=== PATIENT | male | born 1960 | race Caucasian/White ===

== ENCOUNTER 2017-12-31 01:18 | Observation (INO) | payer BC ==
[2017-12-31] MEDS ORDERED: Sodium Chloride 0.9% 10 ML Syringe FLUSH PRN (01:19)
[2017-12-31] MEDS ORDERED: Sodium Chloride 0.9% 2.5 ML Syringe FLUSH PRN (01:19)
[2017-12-31] MEDS ORDERED: Nitroglycerin 2% Oint 1 GM UD Packet TOP ONE (01:42)
[2017-12-31] MEDS ORDERED: Aspirin 81 MG Tab.Chew PO ONE (01:42)
[2017-12-31] MEDS ORDERED: Albuterol/Ipratropium 3.0-0.5 MG/3 ML Neb Soln NEB ONE (01:42)
[2017-12-31] MEDS ORDERED: Sodium Chloride 0.9% 1,000 ML IV ONE (01:43)
[2017-12-31] MEDS ORDERED: methylPREDNISolone Sodium Succinate 125 MG/2 ML SDV IVPUSH ONE (01:43)
[2017-12-31] MEDS ORDERED: Pantoprazole 40 MG Vial IVPUSH ONE (01:43)
--- NOTE | 2017-12-31 01:48 | EDM.PDOC ---
ED HPI GENERAL MEDICAL PROBLEM - General Chief Complaint: Cardiovascular Problem Stated Complaint: SHORTNESS OF BREATH Time Seen by Provider: 12/31/17 01:36 - History of Present Illness INITIAL COMMENTS - FREE TEXT/NARRATIVE: HISTORY AND PHYSICAL: History of present illness: The patient is a 57-year-old male with a history of hypertension as well as a long-standing smoking history, 1-1/2 packs per day for 45 years, but has no stated pulmonary history and presents with complaints of shortness of breath that has been ongoing all day yesterday and worsened this evening. The patient denies any fevers chills or upper respiratory symptoms prior to today but says that all day he felt like he was short of breath with activities and with rest but he didn't have cough or any other symptoms. The patient [place] the [place] and is not exposed to any chemicals or other airborne products that he is aware of. He says he usually lives in [place] and has been here over 2 weeks. He says that when he got home after working he still felt short of breath does he did the day but tried to go to sleep and then at 10 PM he started having a dry hacking cough intermittently and more shortness of breath but no chest pain. He says that he decided to come in because about an hour ago he started having some indigestion which he doesn't normally have. He has no abdominal pain and he has no vomiting or nausea and she's had no diarrhea or black or bloody stools. Patient denies any GI history. Currently in the ED he feels that he can take a deep breath but he says he just feels like he is not getting enough oxygen. He again denies any chest pain no extremity pain no leg swelling and no history of congestive heart failure. He has no other cardiac history. He did not take any medications for shortness of breath or cough prior to coming here. The patient tells me that when he sees his provider back at home for his blood pressure a good blood pressure for him is 160s over 90s. He doesn't usually get below that. He has no headache neck pain or back pain and has had no recent trauma. Patient told nursing that he took his blood pressure at home and it was 190/114 and he was concerned about that along with a dull diffuse headache. On my evaluation he says that he has a headache but he points to the top of his head and is not lateralizing right or left and it is diffuse. Review of systems: As per history of present illness and below otherwise all systems reviewed and negative. Past medical history: As per history of present illness and as reviewed below otherwise noncontributory. Surgical history: As per history of present illness and as reviewed below otherwise noncontributory. Social history: No reported history of drug or alcohol abuse. Family history: As per history of present illness and as reviewed below otherwise noncontributory. Physical exam: General: Well-developed well-nourished mildly overweight man who is nontoxic and vital signs are reviewed by me. I did hear a hacking dry cough on my evaluation. Is not breathless with speech. HEENT: Atraumatic, normocephalic, pupils reactive, negative for conjunctival pallor or scleral icterus, mucous membranes moist, throat clear, neck supple, nontender, trachea midline. Lungs: Clear to auscultation, breath sounds equal bilaterally, chest nontender. There is no wheezing or stridor but there is some diminished breath sounds in the bases bilaterally and no work of breathing. Heart: S1S2, regular rate and rhythm rhythm no overt murmurs Abdomen: Soft, nondistended, nontender. Negative for masses or hepatosplenomegaly. NABS Pelvis: Stable nontender. Genitourinary: Deferred. Rectal: Deferred. Extremities: Atraumatic, negative for cords or calf pain. Neurovascular unremarkable. No pedal edema or leg asymmetry Neuro: Awake, alert, oriented. Cranial nerves II through XII unremarkable. Cerebellum unremarkable. Motor and sensory unremarkable throughout. Exam nonfocal. Skin: There is normal turgor and no evidence of any diaphoresis Diagnostics: EKG--nonspecific T-wave inversion in 2 of the inferior leads otherwise no acute changes Portable chest x-ray CBC CMP amylase lipase INR troponin magnesium alcohol level Therapeutics: IV O2 monitor IV fluids duo neb Solu-Medrol aspirin nitro paste Protonix Tylenol 0250: Patient is most recent blood pressure is 144/78. 0305a: He says he is feeling much improved with all the medications and I've given him and I discussed with him all testing results and my recommendation for observation admission for the oddness of the symptoms without any definitive etiology and his episode of heartburn and hypertension. He is agreeable and I will discuss this case with the hospitalist Dr Diaz 0325: Case discussed with Dr. Diaz who accepts the patient for admission. Impression: Dyspnea, hypertension poorly controlled, atypical chest pain rule out anginal equivalent Definitive disposition and diagnosis as appropriate pending reevaluation and review of above. head Pain Score (Numeric/FACES): 6 - Related Data Allergies Allergy/AdvReac Type Severity Reaction Status Date / Time No Known Allergies Allergy Verified 12/31/17 01:49 Home Meds: Home Meds Hydrochlorothiazide [Microzide] 0 mg PO DAILY 12/31/17 [History] Hydrocodone/Acetaminophen [Hydrocodon-Acetaminoph 7.5-325] 0 mg PO ASDIRECTED [History] Lisinopril 1 tab PO DAILY 12/31/17 [History] Metoprolol Succinate [Kapspargo Sprinkle] 1 tab PO DAILY 12/31/17 [History] ED ROS GENERAL - Review of Systems Review Of Systems: ROS reveals no pertinent complaints other than HPI. ED EXAM, GENERAL - Physical Exam Exam: See Below (See dictation) Course - Vital Signs Last Recorded V/S: Last Vital Signs Temp 36.7 C 12/31/17 03:09 Pulse 66 12/31/17 03:09 Resp 18 12/31/17 03:09 BP 157/84 H 12/31/17 03:09 Pulse Ox 97 12/31/17 03:09 - Orders/Labs/Meds Orders: Active Orders 24 hr Category Date Time Status Patient Status [ADT] Stat ADT 12/31/17 03:21 Active Cardiac Monitoring [RC] . DIRECTED Care 12/31/17 01:20 Active EKG Documentation Completion [RC] STAT Care 12/31/17 01:20 Active Oxygen Therapy, ED [RC] ASDIRECTED Care 12/31/17 01:20 Active Pulse Oximetry [RC] ASDIRECTED Care 12/31/17 01:20 Active RT Aerosol Therapy [RC] ASDIRECTED Care 12/31/17 01:43 Active Chest 1V Frontal [CR] Stat Exams 12/31/17 01:43 Taken Sodium Chloride 0.9% [Saline Flush] Med 12/31/17 01:19 Active 10 ml FLUSH ASDIRECTED PRN Sodium Chloride 0.9% [Saline Flush] Med 12/31/17 01:19 Active 2.5 ml FLUSH ASDIRECTED PRN Saline Lock Insert [OM.PC] Stat Oth 12/31/17 01:20 Ordered Medication Orders Sodium Chloride (Saline Flush) 10 ml FLUSH ASDIRECTED PRN PRN Reason: Keep Vein Open Sodium Chloride (Saline Flush) 2.5 ml FLUSH ASDIRECTED PRN PRN Reason: Keep Vein Open Labs: Laboratory Tests 12/31/17 12/31/17 12/31/17 Range/Units 01:45 01:45 01:45 WBC 6.34 (4.0-11.0) K/uL RBC 5.15 (4.50-5.90) M/uL Hgb 15.8 (13.0-17.0) g/dL Hct 44.5 (38.0-50.0) % MCV 86.4 (80.0-98.0) fL MCH 30.7 (27.0-32.0) pg MCHC 35.5 (31.0-37.0) g/dL RDW Std Deviation 39.7 (28.0-62.0) fl RDW Coeff of Ivan 13 (11.0-15.0) % Plt Count 226 (150-400) K/uL MPV 10.00 (7.40-12.00) fL Neut % (Auto) 49.5 (48.0-80.0) % Lymph % (Auto) 34.5 (16.0-40.0) % [place] % (Auto) 10.6 (0.0-15.0) % Eos % (Auto) 4.9 (0.0-7.0) % Baso % (Auto) 0.5 (0.0-1.5) % Neut # (Auto) 3.1 (1.4-5.7) K/uL Lymph # (Auto) 2.2 (0.6-2.4) K/uL [place] # (Auto) 0.7 (0.0-0.8) K/uL Eos # (Auto) 0.3 (0.0-0.7) K/uL Baso # (Auto) 0.0 (0.0-0.1) K/uL INR 0.98 Sodium 138 (136-148) mmol/L Potassium 4.1 (3.5-5.1) mmol/L Chloride 101 (98-107) mmol/L Carbon Dioxide 27.7 (21.0-32.0) mmol/L BUN 11 (7.0-18.0) mg/dL Creatinine 1.0 (0.8-1.3) mg/dL Est Cr Clr Drug Dosing 97.41 mL/min Estimated GFR (MDRD) > 60.0 ml/min Glucose 136 H (74-106) mg/dL Calcium 9.1 (8.5-10.1) mg/dL Magnesium (1.8-2.4) mg/dL Total Bilirubin 0.4 (0.2-1.0) mg/dL AST 17 (15-37) IU/L ALT 34 (14-63) IU/L Alkaline Phosphatase 86 (46-116) U/L Troponin I < 0.050 (0.000-0.056) ng/mL Total Protein 7.4 (6.4-8.2) g/dL Albumin 4.1 (3.4-5.0) g/dL Globulin 3.3 (2.0-3.5) g/dL Albumin/Globulin Ratio 1.2 L (1.3-2.8) Amylase 42 (25-115) U/L Lipase 148 (73-393) U/L Ethyl Alcohol mg/dL 12/31/17 Range/Units 01:45 WBC (4.0-11.0) K/uL RBC (4.50-5.90) M/uL Hgb (13.0-17.0) g/dL Hct (38.0-50.0) % MCV (80.0-98.0) fL MCH (27.0-32.0) pg MCHC (31.0-37.0) g/dL RDW Std Deviation (28.0-62.0) fl RDW Coeff of Ivan (11.0-15.0) % Plt Count (150-400) K/uL MPV (7.40-12.00) fL Neut % (Auto) (48.0-80.0) % Lymph % (Auto) (16.0-40.0) % [place] % (Auto) (0.0-15.0) % Eos % (Auto) (0.0-7.0) % Baso % (Auto) (0.0-1.5) % Neut # (Auto) (1.4-5.7) K/uL Lymph # (Auto) (0.6-2.4) K/uL [place] # (Auto) (0.0-0.8) K/uL Eos # (Auto) (0.0-0.7) K/uL Baso # (Auto) (0.0-0.1) K/uL INR Sodium (136-148) mmol/L Potassium (3.5-5.1) mmol/L Chloride (98-107) mmol/L Carbon Dioxide (21.0-32.0) mmol/L BUN (7.0-18.0) mg/dL Creatinine (0.8-1.3) mg/dL Est Cr Clr Drug Dosing mL/min Estimated GFR (MDRD) ml/min Glucose (74-106) mg/dL Calcium (8.5-10.1) mg/dL Magnesium 1.8 (1.8-2.4) mg/dL Total Bilirubin (0.2-1.0) mg/dL AST (15-37) IU/L ALT (14-63) IU/L Alkaline Phosphatase (46-116) U/L Troponin I (0.000-0.056) ng/mL Total Protein (6.4-8.2) g/dL Albumin (3.4-5.0) g/dL Globulin (2.0-3.5) g/dL Albumin/Globulin Ratio (1.3-2.8) Amylase (25-115) U/L Lipase (73-393) U/L Ethyl Alcohol 26 mg/dL Meds: Medications Generic Name Dose Route Start Last Admin Trade Name Freq PRN Reason Stop Dose Admin Sodium Chloride 10 ml 12/31/17 01:19 Saline Flush FLUSH ASDIRECTED PRN Keep Vein Open Sodium Chloride 2.5 ml 12/31/17 01:19 Saline Flush FLUSH ASDIRECTED PRN Keep Vein Open Discontinued Medications Generic Name Dose Route Start Last Admin Trade Name Freq PRN Reason Stop Dose Admin Acetaminophen 1,000 mg 12/31/17 02:04 12/31/17 02:12 Tylenol Extra Strength PO 12/31/17 02:05 1,000 mg ONETIME ONE Administration Albuterol/Ipratropium 3 ml 12/31/17 01:42 12/31/17 01:55 Duoneb 3.0-0.5 Mg/3 Ml NEB 12/31/17 01:43 3 ml ONETIME ONE Administration Aspirin 324 mg 12/31/17 01:42 12/31/17 01:54 Aspirin PO 12/31/17 01:43 324 mg ONETIME ONE Administration Sodium Chloride 1,000 mls @ 999 mls/hr 12/31/17 01:43 12/31/17 01:54 Normal Saline IV 12/31/17 02:43 999 mls/hr STAT ONE Administration Methylprednisolone Sodium Succinate 125 mg 12/31/17 01:43 12/31/17 01:55 Solu-Medrol IVPUSH 12/31/17 01:44 125 mg ONETIME ONE Administration Nitroglycerin 1 gm 12/31/17 01:42 12/31/17 01:55 Nitro-Bid 2% TOP 12/31/17 01:43 1 gm ONETIME ONE Administration Pantoprazole Sodium 80 mg 12/31/17 01:43 12/31/17 01:55 Protonix Iv IVPUSH 12/31/17 01:44 80 mg .BOLUS ONE Administration Departure - Departure Time of Disposition: 03:37 Disposition: Refer to Observation Reason for Transfer *Q: Primary PCI Indicated Condition: Good Clinical Impression: Dyspnea, Anginal equivalent, Poorly-controlled hypertension Forms: ED Department Discharge - My Orders Last 24 Hours: My Active Orders 12/31/17 01:19 Sodium Chloride 0.9% [Saline Flush] 10 ml FLUSH ASDIRECTED PRN Sodium Chloride 0.9% [Saline Flush] 2.5 ml FLUSH ASDIRECTED PRN 12/31/17 01:20 Cardiac Monitoring [RC] . DIRECTED EKG Documentation Completion [RC] STAT Oxygen Therapy, ED [RC] ASDIRECTED Pulse Oximetry [RC] ASDIRECTED Saline Lock Insert [OM.PC] Stat 12/31/17 01:43 RT Aerosol Therapy [RC] ASDIRECTED Chest 1V Frontal [CR] Stat 12/31/17 03:21 Patient Status [ADT] Stat - Assessment/Plan Last 24 Hours: My Active Orders 12/31/17 01:19 Sodium Chloride 0.9% [Saline Flush] 10 ml FLUSH ASDIRECTED PRN Sodium Chloride 0.9% [Saline Flush] 2.5 ml FLUSH ASDIRECTED PRN 12/31/17 01:20 Cardiac Monitoring [RC] . DIRECTED EKG Documentation Completion [RC] STAT Oxygen Therapy, ED [RC] ASDIRECTED Pulse Oximetry [RC] ASDIRECTED Saline Lock Insert [OM.PC] Stat 12/31/17 01:43 RT Aerosol Therapy [RC] ASDIRECTED Chest 1V Frontal [CR] Stat 12/31/17 03:21 Patient Status [ADT] Stat
[2017-12-31] MEDS ORDERED: Acetaminophen 500 MG Tab PO ONE (02:04)
[2017-12-31 02:18] LABS: CHLORIDE,CL 101 mmol/L (98-107); SODIUM,NA 138 mmol/L (136-148)
[2017-12-31] MEDS ORDERED: Lisinopril 10 MG Tab PO SCH ×3 (10:00→10:30)
[2017-12-31] MEDS ORDERED: Metoprolol Succinate 100 MG Tab.ER PO SCH (10:15)
--- NOTE | 2017-12-31 12:40 | PCM.HP ---
H&P History of Present Illness - General Date of Service: 12/31/17 Admit Problem/Dx: Admission Diagnosis/Problem Admission Diagnosis/Problem Dyspnea - History of Present Illness Initial Comments - Free Text/Narative: He was seen in the ED with cough and some chest pain. He states that he is much better now EKG in the ED showed sinus rhythm with RBBB with T wave flattening in lead II and with flipped T waves in III and AVF He wants to go home. head Pain Score (Numeric/FACES): 6 - Related Data Allergies/Adverse Reactions: Allergies Allergy/AdvReac Type Severity Reaction Status Date / Time No Known Allergies Allergy Verified 12/31/17 01:49 Home Medications: Home Meds Hydrochlorothiazide [Microzide] 0 mg PO DAILY 12/31/17 [History] Hydrocodone/Acetaminophen [Hydrocodon-Acetaminoph 7.5-325] 0 mg PO ASDIRECTED [History] Lisinopril 20 mg PO DAILY 12/31/17 [History] Metoprolol Succinate [Kapspargo Sprinkle] 100 mg PO DAILY 12/31/17 [History] Past Medical History Cardiovascular History: Reports: Hypertension. Denies: Afib, Cardiomyopathy, NC Respiratory History: Denies: Asthma, COPD Musculoskeletal History: Reports: Back Pain, Chronic Endocrine/Metabolic History: Denies: Frank's Disease, Diabetes, Type I, Diabetes, Type II Oncologic (Cancer) History: Reports: None Social & Family History - Family History Family Medical History: Noncontributory - Tobacco Use Smoking Status *Q: Current Every Day Smoker Years of Tobacco use: 45 Packs/Tins Daily: 1.5 - Caffeine Use Caffeine Use: Reports: Coffee - Recreational Drug Use Recreational Drug Use: No H&P Review of Systems - Review of Systems: Review Of Systems: See Below Pulmonary: Reports: Shortness of Breath, Cough Cardiovascular: Reports: Chest Pain Gastrointestinal: Denies: Bloody Stool, Hematemesis Genitourinary: Denies: Hematuria Exam - Exam Exam: See Below - Vital Signs Vital Signs: Last Vital Signs Temp 97.4 F 12/31/17 11:30 Pulse 97 12/31/17 11:30 Resp 16 12/31/17 11:30 BP 171/95 H 12/31/17 11:30 Pulse Ox 97 12/31/17 11:30 Weight: 143.335 kg - Exam General: Alert, Oriented HEENT: Conjunctiva Clear Neck: Trachea Midline Lungs: Clear to Auscultation, Normal Respiratory Effort Cardiovascular: Regular Rate, Regular Rhythm GI/Abdominal Exam: Soft Rectal (Males) Exam: Deferred Extremities: No Pedal Edema Neurological: Cranial Nerves Intact, Normal Speech - Patient Data Lab Results Last 24 hrs: Laboratory Results - last 24 hr 12/31/17 12/31/17 12/31/17 Range/Units 01:45 01:45 01:45 WBC 6.34 (4.0-11.0) K/uL RBC 5.15 (4.50-5.90) M/uL Hgb 15.8 (13.0-17.0) g/dL Hct 44.5 (38.0-50.0) % MCV 86.4 (80.0-98.0) fL MCH 30.7 (27.0-32.0) pg MCHC 35.5 (31.0-37.0) g/dL RDW Std Deviation 39.7 (28.0-62.0) fl RDW Coeff of Ivan 13 (11.0-15.0) % Plt Count 226 (150-400) K/uL MPV 10.00 (7.40-12.00) fL Neut % (Auto) 49.5 (48.0-80.0) % Lymph % (Auto) 34.5 (16.0-40.0) % [place] % (Auto) 10.6 (0.0-15.0) % Eos % (Auto) 4.9 (0.0-7.0) % Baso % (Auto) 0.5 (0.0-1.5) % Neut # (Auto) 3.1 (1.4-5.7) K/uL Lymph # (Auto) 2.2 (0.6-2.4) K/uL [place] # (Auto) 0.7 (0.0-0.8) K/uL Eos # (Auto) 0.3 (0.0-0.7) K/uL Baso # (Auto) 0.0 (0.0-0.1) K/uL INR 0.98 Sodium 138 (136-148) mmol/L Potassium 4.1 (3.5-5.1) mmol/L Chloride 101 (98-107) mmol/L Carbon Dioxide 27.7 (21.0-32.0) mmol/L BUN 11 (7.0-18.0) mg/dL Creatinine 1.0 (0.8-1.3) mg/dL Est Cr Clr Drug Dosing 97.41 mL/min Estimated GFR (MDRD) > 60.0 ml/min Glucose 136 H (74-106) mg/dL Calcium 9.1 (8.5-10.1) mg/dL Magnesium (1.8-2.4) mg/dL Total Bilirubin 0.4 (0.2-1.0) mg/dL AST 17 (15-37) IU/L ALT 34 (14-63) IU/L Alkaline Phosphatase 86 (46-116) U/L Troponin I < 0.050 (0.000-0.056) ng/mL Total Protein 7.4 (6.4-8.2) g/dL Albumin 4.1 (3.4-5.0) g/dL Globulin 3.3 (2.0-3.5) g/dL Albumin/Globulin Ratio 1.2 L (1.3-2.8) Amylase 42 (25-115) U/L Lipase 148 (73-393) U/L Ethyl Alcohol mg/dL 12/31/17 12/31/17 Range/Units 01:45 07:50 WBC (4.0-11.0) K/uL RBC (4.50-5.90) M/uL Hgb (13.0-17.0) g/dL Hct (38.0-50.0) % MCV (80.0-98.0) fL MCH (27.0-32.0) pg MCHC (31.0-37.0) g/dL RDW Std Deviation (28.0-62.0) fl RDW Coeff of Ivan (11.0-15.0) % Plt Count (150-400) K/uL MPV (7.40-12.00) fL Neut % (Auto) (48.0-80.0) % Lymph % (Auto) (16.0-40.0) % [place] % (Auto) (0.0-15.0) % Eos % (Auto) (0.0-7.0) % Baso % (Auto) (0.0-1.5) % Neut # (Auto) (1.4-5.7) K/uL Lymph # (Auto) (0.6-2.4) K/uL [place] # (Auto) (0.0-0.8) K/uL Eos # (Auto) (0.0-0.7) K/uL Baso # (Auto) (0.0-0.1) K/uL INR Sodium (136-148) mmol/L Potassium (3.5-5.1) mmol/L Chloride (98-107) mmol/L Carbon Dioxide (21.0-32.0) mmol/L BUN (7.0-18.0) mg/dL Creatinine (0.8-1.3) mg/dL Est Cr Clr Drug Dosing mL/min Estimated GFR (MDRD) ml/min Glucose (74-106) mg/dL Calcium (8.5-10.1) mg/dL Magnesium 1.8 (1.8-2.4) mg/dL Total Bilirubin (0.2-1.0) mg/dL AST (15-37) IU/L ALT (14-63) IU/L Alkaline Phosphatase (46-116) U/L Troponin I < 0.050 (0.000-0.056) ng/mL Total Protein (6.4-8.2) g/dL Albumin (3.4-5.0) g/dL Globulin (2.0-3.5) g/dL Albumin/Globulin Ratio (1.3-2.8) Amylase (25-115) U/L Lipase (73-393) U/L Ethyl Alcohol 26 mg/dL Result Diagrams: 12/31/17 01:45 12/31/17 01:45 - Problem List (1) Poorly-controlled hypertension SNOMED Code(s): 522211615 ICD Code: I10 - ESSENTIAL (PRIMARY) HYPERTENSION Status: Acute Current Visit: No Problem List Initiated/Reviewed/Updated: Yes Orders Last 24hrs: Active Orders 24 hr Category Date Time Status Patient Status [ADT] Stat ADT 12/31/17 03:21 Active Cardiac Monitoring [RC] Q8H Care 12/31/17 01:20 Active EKG Documentation Completion [RC] STAT Care 12/31/17 01:20 Active Oxygen Therapy, ED [RC] ASDIRECTED Care 12/31/17 01:20 Active Pulse Oximetry [RC] ASDIRECTED Care 12/31/17 01:20 Active RT Aerosol Therapy [RC] ASDIRECTED Care 12/31/17 01:43 Active 2 Gram Sodium Diet [DIET] Diet 12/31/17 Breakfast Active Chest 1V Frontal [CR] Stat Exams 12/31/17 01:43 Taken TROPONIN I [CHEM] Routine Lab 12/31/17 13:45 Ordered Lisinopril [Prinivil] Med 12/31/17 10:30 Active 20 mg PO DAILY Metoprolol Succinate [Toprol XL] Med 12/31/17 10:15 Active 100 mg PO DAILY Sodium Chloride 0.9% [Saline Flush] Med 12/31/17 01:19 Active 10 ml FLUSH ASDIRECTED PRN Sodium Chloride 0.9% [Saline Flush] Med 12/31/17 01:19 Active 2.5 ml FLUSH ASDIRECTED PRN Saline Lock Insert [OM.PC] Stat Oth 12/31/17 01:20 Ordered Medication Orders Lisinopril (Prinivil) 20 mg PO DAILY [facility] Last Admin: 12/31/17 10:27 Dose: 20 mg Metoprolol Succinate (Toprol Xl) 100 mg PO DAILY [facility] Last Admin: 12/31/17 10:19 Dose: 100 mg Sodium Chloride (Saline Flush) 10 ml FLUSH ASDIRECTED PRN PRN Reason: Keep Vein Open Sodium Chloride (Saline Flush) 2.5 ml FLUSH ASDIRECTED PRN PRN Reason: Keep Vein Open Assessment/Plan Comment:: observe telemetry
--- NOTE | 2017-12-31 12:46 | PCM.DCSUM1 ---
Discharge Summary - Hospital Course Free Text/Narrative:: He was admitted for several troponins for chest pain and cough. Diagnosis: Stroke: No - Discharge Data Discharge Date: 12/31/17 Discharge Disposition: Home, Self-Care 01 Condition: Good - Discharge Diagnosis/Problem(s) (1) Poorly-controlled hypertension SNOMED Code(s): 237361571 ICD Code: I10 - ESSENTIAL (PRIMARY) HYPERTENSION Status: Acute Current Visit: No - Patient Summary/Data Hospital Course: His serial troponins were normal. His cough improved and he feels improved. He remained hypertensive during the time in the hospital. AT discharge his lungs are clear to auscultation. He wants to follow up when he goes home to [place]. I recommended consideration of heart stress testing when he goes home I also recommended increasing his antihypertensives to: lisinopril 20 mg bid HCTZ 12.5 mg bid Will discharge on azithromymycin ( z pack) - Discharge Plan Home Medications: Home Meds Hydrochlorothiazide [Microzide] 0 mg PO DAILY 12/31/17 [History] Hydrocodone/Acetaminophen [Hydrocodon-Acetaminoph 7.5-325] 0 mg PO ASDIRECTED [History] Lisinopril 20 mg PO DAILY 12/31/17 [History] Metoprolol Succinate [[place]sp[place] Sprinkle] 100 mg PO DAILY 12/31/17 [History] Forms: ED Department Discharge Referrals: PCP,None [Primary Care Provider] - - Patient Data Vitals - Most Recent: Last Vital Signs Temp 97.4 F 12/31/17 11:30 Pulse 97 12/31/17 11:30 Resp 16 12/31/17 11:30 BP 171/95 H 12/31/17 11:30 Pulse Ox 97 12/31/17 11:30 Weight - Most Recent: 143.335 kg Lab Results - Last 24 hrs: Laboratory Results - last 24 hr 12/31/17 12/31/17 12/31/17 Range/Units 01:45 01:45 01:45 WBC 6.34 (4.0-11.0) K/uL RBC 5.15 (4.50-5.90) M/uL Hgb 15.8 (13.0-17.0) g/dL Hct 44.5 (38.0-50.0) % MCV 86.4 (80.0-98.0) fL MCH 30.7 (27.0-32.0) pg MCHC 35.5 (31.0-37.0) g/dL RDW Std Deviation 39.7 (28.0-62.0) fl RDW Coeff of Ivan 13 (11.0-15.0) % Plt Count 226 (150-400) K/uL MPV 10.00 (7.40-12.00) fL Neut % (Auto) 49.5 (48.0-80.0) % Lymph % (Auto) 34.5 (16.0-40.0) % [place] % (Auto) 10.6 (0.0-15.0) % Eos % (Auto) 4.9 (0.0-7.0) % Baso % (Auto) 0.5 (0.0-1.5) % Neut # (Auto) 3.1 (1.4-5.7) K/uL Lymph # (Auto) 2.2 (0.6-2.4) K/uL [place] # (Auto) 0.7 (0.0-0.8) K/uL Eos # (Auto) 0.3 (0.0-0.7) K/uL Baso # (Auto) 0.0 (0.0-0.1) K/uL INR 0.98 Sodium 138 (136-148) mmol/L Potassium 4.1 (3.5-5.1) mmol/L Chloride 101 (98-107) mmol/L Carbon Dioxide 27.7 (21.0-32.0) mmol/L BUN 11 (7.0-18.0) mg/dL Creatinine 1.0 (0.8-1.3) mg/dL Est Cr Clr Drug Dosing 97.41 mL/min Estimated GFR (MDRD) > 60.0 ml/min Glucose 136 H (74-106) mg/dL Calcium 9.1 (8.5-10.1) mg/dL Magnesium (1.8-2.4) mg/dL Total Bilirubin 0.4 (0.2-1.0) mg/dL AST 17 (15-37) IU/L ALT 34 (14-63) IU/L Alkaline Phosphatase 86 (46-116) U/L Troponin I < 0.050 (0.000-0.056) ng/mL Total Protein 7.4 (6.4-8.2) g/dL Albumin 4.1 (3.4-5.0) g/dL Globulin 3.3 (2.0-3.5) g/dL Albumin/Globulin Ratio 1.2 L (1.3-2.8) Amylase 42 (25-115) U/L Lipase 148 (73-393) U/L Ethyl Alcohol mg/dL 12/31/17 12/31/17 Range/Units 01:45 07:50 WBC (4.0-11.0) K/uL RBC (4.50-5.90) M/uL Hgb (13.0-17.0) g/dL Hct (38.0-50.0) % MCV (80.0-98.0) fL MCH (27.0-32.0) pg MCHC (31.0-37.0) g/dL RDW Std Deviation (28.0-62.0) fl RDW Coeff of Ivan (11.0-15.0) % Plt Count (150-400) K/uL MPV (7.40-12.00) fL Neut % (Auto) (48.0-80.0) % Lymph % (Auto) (16.0-40.0) % [place] % (Auto) (0.0-15.0) % Eos % (Auto) (0.0-7.0) % Baso % (Auto) (0.0-1.5) % Neut # (Auto) (1.4-5.7) K/uL Lymph # (Auto) (0.6-2.4) K/uL [place] # (Auto) (0.0-0.8) K/uL Eos # (Auto) (0.0-0.7) K/uL Baso # (Auto) (0.0-0.1) K/uL INR Sodium (136-148) mmol/L Potassium (3.5-5.1) mmol/L Chloride (98-107) mmol/L Carbon Dioxide (21.0-32.0) mmol/L BUN (7.0-18.0) mg/dL Creatinine (0.8-1.3) mg/dL Est Cr Clr Drug Dosing mL/min Estimated GFR (MDRD) ml/min Glucose (74-106) mg/dL Calcium (8.5-10.1) mg/dL Magnesium 1.8 (1.8-2.4) mg/dL Total Bilirubin (0.2-1.0) mg/dL AST (15-37) IU/L ALT (14-63) IU/L Alkaline Phosphatase (46-116) U/L Troponin I < 0.050 (0.000-0.056) ng/mL Total Protein (6.4-8.2) g/dL Albumin (3.4-5.0) g/dL Globulin (2.0-3.5) g/dL Albumin/Globulin Ratio (1.3-2.8) Amylase (25-115) U/L Lipase (73-393) U/L Ethyl Alcohol 26 mg/dL Med Orders - Current: Current Medications Lisinopril (Prinivil) 20 mg PO DAILY [facility] Last Admin: 12/31/17 10:27 Dose: 20 mg Metoprolol Succinate (Toprol Xl) 100 mg PO DAILY [facility] Last Admin: 12/31/17 10:19 Dose: 100 mg Sodium Chloride (Saline Flush) 10 ml FLUSH ASDIRECTED PRN PRN Reason: Keep Vein Open Sodium Chloride (Saline Flush) 2.5 ml FLUSH ASDIRECTED PRN PRN Reason: Keep Vein Open Discontinued Medications Acetaminophen (Tylenol Extra Strength) 1,000 mg PO ONETIME ONE Stop: 12/31/17 02:05 Last Admin: 12/31/17 02:12 Dose: 1,000 mg Albuterol/Ipratropium (Duoneb 3.0-0.5 Mg/3 Ml) 3 ml NEB ONETIME ONE Stop: 12/31/17 01:43 Last Admin: 12/31/17 01:55 Dose: 3 ml Aspirin (Aspirin) 324 mg PO ONETIME ONE Stop: 12/31/17 01:43 Last Admin: 12/31/17 01:54 Dose: 324 mg Sodium Chloride (Normal Saline) 1,000 mls @ 999 mls/hr IV STAT ONE Stop: 12/31/17 02:43 Last Admin: 12/31/17 01:54 Dose: 999 mls/hr Lisinopril (Prinivil) 10 mg PO DAILY [facility] Lisinopril (Prinivil) 20 mg PO DAILY [facility] Methylprednisolone Sodium Succinate (Solu-Medrol) 125 mg IVPUSH ONETIME ONE Stop: 12/31/17 01:44 Last Admin: 12/31/17 01:55 Dose: 125 mg Nitroglycerin (Nitro-Bid 2%) 1 gm TOP ONETIME ONE Stop: 12/31/17 01:43 Last Admin: 12/31/17 01:55 Dose: 1 gm Pantoprazole Sodium (Protonix Iv) 80 mg IVPUSH .BOLUS ONE Stop: 12/31/17 01:44 Last Admin: 12/31/17 01:55 Dose: 80 mg
--- NOTE | 2018-01-02 09:36 | CR ---
EXAM DATE: 12/31/17 PATIENT'S AGE: 57 Patient: [facility] Facility: [place], [place] Site . Site : [id number] Study: XRay Chest [id number] 2:10:56 AM Ordering Physician: Kevan Nevarez Final Report: HISTORY: Pain and shortness of breath COMPARISON: None available FINDINGS: A portable erect AP view of the chest was obtained at 0205 hours. The lungs are clear. No focal or diffuse infiltrates are present. The heart is normal in size. The mediastinum is normal in appearance. The osseous structures are normal in appearance for the patient`s age. IMPRESSION: NORMAL PORTABLE CHEST SINGLE VIEW. Dictated by Roni Jovel MD @ Dec 31 2017 2:26AM (Electronic Signature) Report Signed by Proxy. IVY
== END 2017-12-31 13:25 | disposition home or self-care (01) ==
LOC: MW.ED 01:18 → MW.MS 03:21
PROVIDERS: ADMIT Family Medicine; ATTEND Family Medicine
DX: I10 Essential (primary) hypertension (principal); R07.89 Other chest pain; F17.210 Nicotine dependence, cigarettes, uncomplicated; Z79.899 Other long term (current) drug therapy
CPT/HCPCS: 36415; 71045; 80053; 82150; 83690; 83735; 84484; 85025; 85610; 93005; 94640; 96361; 96374; 96375; 99285; A9270; C9113; G0480; J2930; J7040; 99283; G0378; J7620-GY